=== PATIENT | male | born 1975 | race Caucasian/White ===

== ENCOUNTER 2021-05-04 06:27 | Emergency (ER) | payer BC ==
[2021-05-04] MEDS ORDERED: Albuterol/Ipratropium 3.0-0.5 MG/3 ML Neb Soln NEB ONE (07:00)
--- NOTE | 2021-05-04 07:06 | EDM.PDOC ---
<YvonneVíctor Ivan - Last Filed: 05/04/21 08:36> ED HPI GENERAL MEDICAL PROBLEM - General Chief Complaint: Respiratory Problem Stated Complaint: ASTHMA ATTACK Time Seen by Provider: 05/04/21 06:37 Source of Information: Reports: Patient History Limitations: Reports: No Limitations - History of Present Illness INITIAL COMMENTS - FREE TEXT/NARRATIVE: Mr. Dolan is a very pleasant 46-year-old gentleman with a past medical history significant for suspected asthma, who now presents the ED stating that he woke up around 05:30 this morning with dyspnea, wheezing, and a slight cough. No recent fever. He has similar symptoms often, particularly when he is at home. He states that he typically uses albuterol MDI every 3-4 hours while at home, although the patient is currently away from home. He states that he ran out of his albuterol yesterday. He does not own a peak flow meter or spacer chamber. Here in the ED, the patient is found to be hemodynamically stable, afebrile, saturating 92% on room air. He is audibly wheezing, although does not appear to be in acute respiratory distress. Other than his frequent respiratory issues, prior to this morning, the patient denies having a recent fever, chills, sore throat, ear pain, nasal or sinus congestion, chest pain, palpitations, nausea, vomiting, constipation, diarrhea, abdominal pain, urinary symptoms, recent weight gain or weight loss, recent bloody bowel movements or black bowel movements, recent joint aches, headaches, or rashes. The patient's PCP is in [place], [place]. He is in this area for work. He has not received a COVID vaccination, nor an influenza vaccination this season. - Related Data Allergies Allergy/AdvReac Type Severity Reaction Status Date / Time No Known Allergies Allergy Verified 05/04/21 06:40 Home Meds: Home Meds Albuterol [Ventolin HFA] 1 puff INH Q4H PRN #1 mdi 05/04/21 [Rx] predniSONE [Prednisone] 1 tab PO QAM #5 tablet 05/04/21 [Rx] Past Medical History Respiratory History: Reports: Asthma (suspected, not PFT-tested) Psychiatric History: Reports: Anxiety, Depression, OCD - Past Surgical History Neurological Surgical History: Reports: Other (See Below) Other Neurological Surgeries/Procedures: neurosurgery for OCD?? Social & Family History - Tobacco Use Tobacco Use Status *Q: Never Tobacco User - Caffeine Use Caffeine Use: Reports: None - Alcohol Use Alcohol Use History: Yes Alcohol Use Frequency: Socially - Recreational Drug Use Recreational Drug Use: No - Living Situation & Occupation Living situation: Reports: , with Spouse, with Family (2 stepkids) Occupation: Employed ([employer]) ED ROS GENERAL - Review of Systems Review Of Systems: Comprehensive ROS is negative, except as noted in HPI. ED EXAM, GENERAL - Physical Exam Exam: See Below Exam Limited By: No Limitations General Appearance: Alert, WD/WN, No Apparent Distress Eye Exam: Bilateral Eye: EOMI, Normal Inspection Ears: Normal External Exam, Hearing Grossly Normal Nose: Normal Inspection Throat/Mouth: Normal Inspection, Normal Lips, Normal Voice, No Airway Compromise Head: Atraumatic, Normocephalic Neck: Normal Inspection, Full Range of Motion Respiratory/Chest: No Respiratory Distress, No Accessory Muscle Use, Wheezing (fine, diffuse, expiratory). No: Decreased Breath Sounds, Crackles, Rhonchi, Stridor, Prolonged Expiration Cardiovascular: Normal Peripheral Pulses, Regular Rate, Rhythm, No Gallop, No JVD, No Murmur, No Rub Peripheral Pulses: 3+: Radial (L), Radial (R) GI/Abdominal: Normal Bowel Sounds, Soft, Non-Tender, No Organomegaly, No Distention, No Abnormal Bruit, No Mass Back Exam: Normal Inspection, Full Range of Motion, NT Extremities: Normal Inspection, Normal Range of Motion, Normal Capillary Refill Neurological: Alert, Oriented, Normal Cognition, No Motor/Sensory Deficits Psychiatric: Normal Affect Skin Exam: Warm, Dry, Intact, Normal Color, No Rash Course - Re-Assessments/Exams Free Text/Narrative Re-Assessment/Exam: 05/04/21 07:00 The patient will be given a DuoNeb and oral prednisone, but I also asked to have the respiratory therapist provide him with a peak flow meter and spacer chamber, and instruct him on their use. 05/04/21 07:40 Following a DuoNeb and oral prednisone, the patient is still wheezing. I have ordered an albuterol neb. 05/04/21 08:36 The patient is still wheezing. He states that his breathing feels much better than it originally did, but not back to baseline. He would like to keep going with additional albuterol. Case discussed with Dr. Hollins, and care of the patient turned over to him at this time, for change of shift. Departure - Departure Disposition: Home, Self-Care 01 Clinical Impression: Exacerbation of asthma Qualifiers: Asthma severity: moderate Asthma persistence: unspecified Qualified Code(s): J45.901 - Unspecified asthma with (acute) exacerbation - Discharge Information *PRESCRIPTION DRUG MONITORING PROGRAM REVIEWED*: Not Applicable *COPY OF PRESCRIPTION DRUG MONITORING REPORT IN PATIENT [facility]: Not Applicable Prescriptions: predniSONE [Prednisone] 1 tab PO QAM #5 tablet Albuterol [Ventolin HFA] 1 puff INH Q4H PRN #1 mdi PRN Reason: Wheezing Instructions: Asthma, Adult, Shortness of Breath, Adult, [id number] Referrals: PCP,Not In Area [Primary Care Provider] - Forms: ED Department Discharge Additional Instructions: You were seen in the emergency room after waking up with shortness of breath, wheezing, and a slight cough. Based on your history and physical examination, you were most likely suffering from an asthma exacerbation. You were treated with oral prednisone and numerous nebulized treatments of albuterol in the ER. Prescriptions for prednisone and an albuterol MDI have been provided to you. Take 1 tablet (20 mg) of prednisone every morning, starting tomorrow morning, 05/05/2021, as prescribed. You were provided with a peak flow meter and a spacer chamber, and instructed on their use. We recommend that you check your peak flow a couple of times a week, even if you are feeling well. If your peak flow drops down into the yellow or red zone, contact your doctor, as this may indicate that you may develop an asthma exacerbation within the next couple of weeks. If you are feeling short of breath, but your peak flows in the green zone, DO NOT take albuterol, as this indicates that your shortness of breath is not due to an asthma exacerbation. If you are feeling short of breath with wheezing, with or without a cough, and your peak flow is in the yellow or red zone, you may take as much albuterol as necessary to get relief, however, if you require albuterol more often than every 4 hours, you need to be seen by a doctor. It is very important that you use your spacer chamber whenever you use a metered dose inhaler, such as albuterol. As discussed, it is important that you undergo a pulmonary function test to determine if you have asthma, or some other cause of your symptoms. Please talk to your PCP back home in order to get it arranged. If any other problems, please do not hesitate to return to the ER. Sepsis Event Note (ED) - Evaluation Sepsis Screening Result: No Definite Risk <Franky Presley Chris - Last Filed: 05/04/21 09:53> Course - Vital Signs Last Recorded V/S: Last Vital Signs Temp 35.9 C L 05/04/21 07:28 Pulse 93 05/04/21 07:28 Resp 18 05/04/21 07:28 BP 123/84 05/04/21 07:28 Pulse Ox 96 05/04/21 08:36 - Orders/Labs/Meds Orders: Active Orders 24 hr Category Date Time Status RT Aerosol Therapy [RC] ASDIRECTED Care 05/04/21 07:00 Active RT Aerosol Therapy [RC] ASDIRECTED Care 05/04/21 07:40 Active RT Aerosol Therapy [RC] ASDIRECTED Care 05/04/21 08:36 Active Meds: Medications Discontinued Medications Generic Name Dose Route Start Last Admin Trade Name Freq PRN Reason Stop Dose Admin Albuterol 2.5 mg 05/04/21 07:39 05/04/21 08:56 Albuterol 0.083% 2.5 Mg/3 Ml Neb Soln [facility] 05/04/21 07:40 2.5 mg ONETIME ONE Administration Albuterol 2.5 mg 05/04/21 08:36 Albuterol 0.083% 2.5 Mg/3 Ml Neb Soln [facility] 05/04/21 08:37 ONETIME ONE Albuterol/Ipratropium 3 ml 05/04/21 07:00 05/04/21 07:07 Albuterol/Ipratropium 3.0-0.5 Mg/3 Ml Neb Soln [facility] 05/04/21 07:01 3 ml ONETIME ONE Administration Prednisone 60 mg 05/04/21 07:08 05/04/21 07:26 Prednisone 20 Mg Tab PO 05/04/21 07:09 60 mg ONETIME STA Administration Departure - Departure Time of Disposition: 09:52 Condition: Fair - Discharge Information *PRESCRIPTION DRUG MONITORING PROGRAM REVIEWED*: Not Applicable *COPY OF PRESCRIPTION DRUG MONITORING REPORT IN PATIENT [facility]: Not Applicable Sepsis Event Note (ED) - Focused Exam Vital Signs: Vital Signs Temp Pulse Resp BP Pulse Ox Pulse Ox 05/04/21 08:36 96 05/04/21 07:28 35.9 C L 93 18 123/84 94 L 05/04/21 07:08 95 05/04/21 06:41 122/81 05/04/21 06:35 35.5 C L 87 20 92 L
[2021-05-04] MEDS ORDERED: predniSONE 20 MG Tab PO STA (07:08)
[2021-05-04] MEDS ORDERED: Albuterol 0.083% 2.5 MG/3 ML Neb Soln NEB ONE ×2 (07:39→08:36)
== END 2021-05-04 10:00 | disposition home or self-care (01) ==
LOC: JD.ED 06:27
DX: J45.901 Unspecified asthma with (acute) exacerbation (principal)
CPT/HCPCS: 94640; 99284; J7512; J7620-GY